=== PATIENT | female | born 1990 | race African-American/Black ===

== ENCOUNTER 2024-03-03 12:52 | Emergency (ER) | payer MEDICAID, SELFPAY ==
--- NOTE | ~2024-03-03 | CT_ITS ---
EXAMINATION: CT abdomen pelvis w con DATE: 03/03/2024 17:08 INDICATION: epigastric/RUQ pain TECHNIQUE: Computed tomography (CT) of the abdomen and pelvis was performed with 100 mL Omnipaque-350 intravenous contrast. Automated exposure control and iterative reconstruction technique were employe d. The dose-length product was 1642.65 mGy-cm. COMPARISON: None. FINDINGS: Lower thorax: Unremarkable Liver: Enlarged. Biliary/Gallbladder: Gallbladder is normal. No bile duct dilation. Pancreas: No mass or duct dilation. Spleen: Normal. Adrenals:No mass. Kidneys: No suspicious mass, obstructing stone, or hydronephrosis. GI tract: Mild distal esophageal and gastric wall edema, including wall edema along the first portion of the duodenum were a focal 11 mm outpouching in the posteromedial wall is noted No small or large bowel dilation. Normal appendix. Mesentery/Peritoneum: No ascites, mass, or free air. Retroperitoneum: No mass. Pelvis: Pelvic organs are within normal limits. Soft Tissues: Soft tissues and body wall unremarkable. Bones: No acute osseous finding. IMPRESSION: Hepatomegaly. Mild esophagitis/gastritis. Duodenal ulcer in the first portion of the duodenum with associated duodenitis. No CT evidence of per foration. Reviewed, dictated and finalized at location [facility]. AGE HAND[employer]ER IMPRESSION: Hepatomegaly. Mild esophagitis/gastritis. Duodenal ulcer in the first portion of the duodenum with associated duodenitis. No CT evidence of perforation.
[2024-03-03 14:44] LABS: Add Urine Microscopic? NO; Appearance Urine Clear (Clear); Basophils Absolute Auto 0.1 K/mm3 (0.0-0.1); Basophils Percent Auto 0.6 % (0.2-1.2); Bilirubin Urine Negative (Negative); Blood Urine Negative (Negative); Color Urine Yellow (Yellow); Eosinophils Absolute Auto 0.2 K/mm3 (0-0.3); Eosinophils Percent Auto 2.6 % (0-4.4); Glucose Urine UA Negative (Negative); Hematocrit 31.8 % (37.0-47.0); Hemoglobin 8.9 g/dL (12.0-15.0); Immature Granulocyte Absolute 0.02 K/mm3 (0.00-0.031); Immature Granulocyte Percent A 0.2 % (0-0.5); Ketones Urine Trace mg/dL (Negative); Leukocyte Esterase Ur Negative LEU/UL (Negative); Lymphocytes Absolute Auto 2.84 K/mm3 (0.9-3.2); Mean Corpuscular Hemoglobin 20.1 pg (26-34); Mean Corpuscular Volume 71.9 fl (80-100); Mean Platelet Volume 9.1 fl (7.4-10.4); Monocytes Absolute Auto 0.6 K/mm3 (0.1-0.6); Monocytes Percent Auto 7.6 % (2.6-8.5); Neutrophils Absolute Auto 4.4 K/mm3 (1.3-6.7); Nitrate Urine Negative (Negative); Platelet Count Result 437 k/mm3 (150-375); Protein Urine Negative (Negative); Red Blood Count 4.42 M/mm3 (4.2-5.4); Red Cell Distribution Width 18.7 % (11.5-14.5); Specific Grav Ur 1.026 (1.001-1.035); White Blood Count 8.1 K/mm3 (4.5-10.0)
[2024-03-03 14:57] LABS: BEDSIDEPREGUCG Negative (Negative)
[2024-03-03] MEDS: ONDANSETRON INJ 4 MG/2 ML VIAL IV PUSH (15:24)
[2024-03-03] MEDS: MORPHINE SULFATE (*CRX) 4 MG/ML INJ IV PUSH (15:25)
[2024-03-03 15:27] VITALS: BP 109/64; PULSE 54; RESP 14; O2SAT 97
[2024-03-03 15:36] LABS: Platelet Estimate Increased (Adequate); Schistocytes None Seen
[2024-03-03 15:37] LABS: Anisocytosis 2+; Hypochromasia 1+
[2024-03-03 16:42] LABS: Alanine Aminotransferase 10 U/L (6-35); Albumin Level 3.4 g/dL (3.5-5.1); Alkaline Phosphatase 77 U/L (38-126); Anion Gap 1 mmol/L (4-12); Aspartate Amino Transferase 17 U/L (14-36); Bilirubin,Total 0.4 mg/dL (0.2-1.3); Blood Urea Nitrogen 10 mg/dL (7-17); Calcium 9.7 mg/dL (8.4-10.2); Carbon Dioxide 25 mmol/L (22-30); Chloride 110 mmol/L (98-107); Estimated CRCL calculation 124 ml/min; Estimated Glomerular Filt Rate > 60; Glucose 100 mg/dL (65-110); Lipase 183 U/L (23-300); Sodium 136 mmol/L (137-145)
--- NOTE | 2024-03-03 16:47 | ED.ABDPAIN ---
HPI - Abdominal Pain General Chief Complaint: Abdominal Pain Stated Complaint: abdominal pain Time Seen by Provider: 03/03/24 14:10 History of Present Illness HPI narrative: Patient is a 33-year-old female who presents ER with pain in epic cerumen right upper quadrant. Intermittent only painful over last month. More persistent starting last night. Worsens with eating and drinking but also bending and twisting. No fevers or chills or sweats. Radiates into the back. No diarrhea. She does have some acid reflux was this. Related Data Allergies Allergy/AdvReac Type Severity Reaction Status Date / Time amoxicillin Allergy Intermediate Hives Verified 03/03/24 12:53 naproxen Allergy Intermediate Hives Verified 03/03/24 12:53 Penicillins Allergy Intermediate Hives Verified 03/03/24 12:53 Review of Systems Review of Systems: All systems reviewed & are unremarkable except as noted in HPI and below Constitutional: Constitutional: Reports no additional constitutional complaints Cardiovascular: Cardiovascular: Reports no additional cardiovascular complaints Respiratory: Respiratory: Reports no additional respiratory complaints Gastrointestinal: Gastrointestinal: Reports abdominal pain, Denies constipation, Reports heartburn, Denies diarrhea, Reports nausea and Denies vomiting Genitourinary: Genitourinary: Reports no additional female genitourinary complaints PMFSH Past Medical History Medical History (Updated 03/03/24 @ 17:59 by Tani Patel MD) Healthy female adult Surgical History Surgical History (Updated 03/03/24 @ 16:48 by Tani Patel MD) No history of previous surgery Exam Narrative: GENERAL: Well-appearing, well-nourished, and in no acute distress. HEAD: Normocephalic, atraumatic. ENT: Mucous membranes moist. CHEST: Clear to auscultation. No respiratory distress. HEART: Regular rate and rhythm. Normal peripheral pulses. ABDOMEN: Soft, mild to moderate tenderness in the epigastrium without guarding, nondistended, normal active bowel sounds. EXTREMITIES: Normal range of motion. No edema. SKIN: Warm, dry, no rash. NEURO: Alert and oriented x3. PSYCH: Normal mood and affect. Course Course Emergency Course: informed of lab/imaging results. D/c with PPI and low fat diet. Vital Signs Vital signs: Vital Signs Pulse Rate 54 L 03/03/24 15:27 Respiratory Rate 14 03/03/24 15:27 Blood Pressure 109/64 03/03/24 15:27 Pulse Oximetry 97 03/03/24 15:27 Pulse Rate 54 L 03/03/24 15:27 Respiratory Rate 14 03/03/24 15:27 Blood Pressure 109/64 03/03/24 15:27 Pulse Oximetry 97 03/03/24 15:27 MDM - Abdominal Pain Lab Data 03/03/24 14:36 03/03/24 14:36 Labs: Lab Results 03/03/24 03/03/24 Range/Units 14:36 14:54 WBC 8.1 (4.5-10.0) K/mm3 RBC 4.42 (4.2-5.4) M/mm3 Hgb 8.9 L (12.0-15.0) g/dL Hct 31.8 L (37.0-47.0) % MCV 71.9 L (80-100) fl MCH 20.1 L (26-34) pg MCHC 28.0 L (32-36) g/dl RDW 18.7 H (11.5-14.5) % Plt Count 437 H (150-375) k/mm3 MPV 9.1 (7.4-10.4) fl Immature Gran % (Auto) 0.2 (0-0.5) % Neut % (Auto) 54.0 (45.5-73.1) % Lymph % (Auto) 35.0 (18.3-44.2) % [place] % (Auto) 7.6 (2.6-8.5) % Eos % (Auto) 2.6 (0-4.4) % Baso % (Auto) 0.6 (0.2-1.2) % Lymph # (Auto) 2.84 (0.9-3.2) K/mm3 [place] # (Auto) 0.6 (0.1-0.6) K/mm3 Eos # (Auto) 0.2 (0-0.3) K/mm3 Baso # (Auto) 0.1 (0.0-0.1) K/mm3 Abs Immat Gran (auto) 0.02 (0.00-0.031) K/mm3 Absolute Neuts (auto) 4.4 (1.3-6.7) K/mm3 Absolute Nucleated RBC 0.000 (0.0-0.012) K/mm3 Nucleated RBC % 0.0 (0.0-0.2) % Platelet Estimate Increased (Adequate) Hypochromasia 1+ Anisocytosis 2+ Schistocytes None seen Sodium 136 L (137-145) mmol/L Potassium 4.0 (3.4-5.0) mmol/L Chloride 110 H (98-107) mmol/L Carbon Dioxide 25 (22-30) mmol/L Anion Gap 1 L (4-12) mmol/L BUN 10 (7-17) mg/dL Creatinine 0.90 (0.7-1.0) mg/dL Estim Creat Clear Calc 124 ml/min Estimated GFR > 60 (59 - ) Glucose 100 (65-110) mg/dL Calcium 9.7 (8.4-10.2) mg/dL Total Bilirubin 0.4 (0.2-1.3) mg/dL AST 17 (14-36) U/L ALT 10 (6-35) U/L Alkaline Phosphatase 77 (38-126) U/L Total Protein 6.0 L (6.3-8.2) g/dL Albumin 3.4 L (3.5-5.1) g/dL Lipase 183 (23-300) U/L Urine Color Yellow (Yellow) Urine Appearance Clear (Clear) Urine pH 7.0 (5.0-9.0) Ur Specific [place] 1.026 (1.001-1.035) Urine Protein Negative (Negative) mg/dL Urine Glucose (UA) Negative (Negative) mg/dL Urine Ketones Trace H (Negative) mg/dL Ur Blood (Man) Negative (Negative) Urine Nitrate Negative (Negative) Urine Bilirubin Negative (Negative) Urine Urobilinogen 1.0 (<2.0) mg/dL Leukocyte Esterase Rfl Negative (Negative) WILLIAN/UL POC Urine HCG, Qual Negative (Negative) Imaging Data Radiologist's impression: ITS Impressions Abdomen/Pelvis CT 03/03/24 17:13 IMPRESSION: Hepatomegaly. Mild esophagitis/gastritis. Duodenal ulcer in the first portion of the duodenum with associated duodenitis. No CT evidence of perforation. Discharge Plan Discharge Clinical Impression: Duodenal ulcer, Gastritis and gastroduodenitis Patient Disposition: Home, Self-Care Condition: Stable Instructions: Antibiotic Form, Peptic Ulcer (ED), Gastritis (ED), Low Fat Diet (ED) Additional Instructions: your being started on has some reflux medicine to help treat no ulcer. Adhere to a low-fat diet and avoid spicy foods. Do not take any anti-inflammatory medication including ibuprofen (advil) and naproxen (aleve). Return to the ER if you have dark black stool indicating blood in your stool. Also if you vomit and it looks like coffee grounds return to the ER. Need to follow-up with the PCP and likely see a GI doctor to undergo endoscopy. Patient Language: Macanese Prescriptions: New pantoprazole 40 mg tablet,delayed release (DR/EC) 40 mg PO BID 14 Days Qty: 28 0RF hydroxyzine pamoate 25 mg capsule 25 mg PO TID PRN (Reason: anixety) Qty: 30 0RF Follow-up/Referrals: PHYSICIAN,MEDICAL OFFICE MANAGER [Primary Care Provider] - Oscar Wynn MD [Physician] - (duodenal ulcer) Raegan Lowery DO [Physician] - 1 Week
[2024-03-03 18:40] VITALS: BP 120/76; PULSE 76; RESP 15; O2SAT 98
--- OUTSIDE RECORDS SUMMARY | 2024-03-10 11:32 | XMS_ITS | Continuity of Care Document ---
Author Organization [facility] Address [address] [place] [phone] Phone Care Team Providers Care Roadmaster Name Role Phone Casa Landrum MD Unavailable Unavailable Advance Directives Directive Yes / No Effective Date File Name No Information Encounters Encounter Description Practice Location Reason(s) For Visit Diagnoses Date Provider Providers Copied on Encounter [facility], [address] [place] [address], [id number], [place] tel:[phone] [facility] HEALTH INSURANCE SPECIALIST No Information Diallo Cormier. [address] [place] [address], [id number], [place]. tel:[phone] Family History Family Member Type Diagnosis Age At Onset No Information Payers Payer name Insurance type Covered republican ID Authoriza tion(s) No Information Social History Type Description Quantity Date Captured Comments Sex Female Smoking Status No Information Chief Complaint And Reason For Visit No Information Reason For Referral Reason For Referral No Information History Of Present Illness Encounter Date Complaint History Of Prese nt Illness No Information Functional Status Date Functional Assessmen t No Information Instructions Date Instruction Additional Infor mation No Information Assessments Type Assessment Date No Information Patient Care Teams Name Effective Dates (start - stop) Status Members No Information
== END 2024-03-03 18:42 | disposition home or self-care (01) ==
PROVIDERS: Emergency Provider Emergency Medicine
DX: K26.9 Duodenal ulcer, unspecified as acute or chronic, without hemorrhage or perforation (principal); K29.80 Duodenitis without bleeding; K29.90 Gastroduodenitis, unspecified, without bleeding; K29.70 Gastritis, unspecified, without bleeding; R16.0 Hepatomegaly, not elsewhere classified
CPT/HCPCS: 36415; 74177; 80053; 81003; 81025; 83690; 85025; 96374; 96375; 99284; J2270; J2405; Q9967